=== PATIENT | female | born 1995 | race Caucasian/White ===

== ENCOUNTER 2017-07-23 12:40 | Emergency (ER) | payer SELFPAY ==
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
[2017-07-23] MEDS ORDERED: Ibuprofen TAB* 600 MG PO ONE (13:38)
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
[2017-07-23 14:41] VITALS: BP 128/84
== END 2017-07-23 14:40 | disposition home or self-care (01) ==
LOC: ED 12:40
DX: S43.402A Unspecified sprain of left shoulder joint, initial encounter (principal); V43.62XA Car passenger injured in collision with other type car in traffic accident, initial encounter; Y92.9 Unspecified place or not applicable; Y99.8 Other external cause status; Z88.0 Allergy status to penicillin
CPT/HCPCS: 99282; A9270-GY

== ENCOUNTER 2018-12-02 11:24 | Emergency (ER) | payer BC, OTHER ==
[2018-12-02 11:38] VITALS: BP 125/92
--- NOTE | 2018-12-02 12:13 | UC ---
General HPI - HPI Summary HPI Summary: 23 yo female c/o headache since yesterday am upon awakening. H/a is mostly frontal L>R. Not wol, has had h/a's in the past, but not like this since approx 2013. No recent illness / fever / chills. No rash. Reported to RN blurry vision, vision ok now. Described floaters / flashes / curtain. No cough / sob / palpitations. No GI issues although has been nauseaus. Reportst feeling depressed, but specifically denies suicidal / homicidal ideation. No fever / chills. Works hard at work, indoors (high chemical / allergen environment). Feels like she is dehydrated. Feels very stressed. Has upcoming appt with new PCP ([facility] for Dr. Dubois) this week. + fam hx thyroid d/o , would like blood work. Denies , on bcp, periods have been regular. - History of Current Complaint Chief Complaint: UCHeadache Stated Complaint: HEADACHE/BLURRED VISION Time Seen by Provider: 12/02/18 12:11 Hx Obtained From: Patient Hx Last Menstrual Period: 2 wks ago Pain Intensity: 6 - Allergy/Home Medications Allergies/Adverse Reactions: Allergies Allergy/AdvReac Type Severity Reaction Status Date / Time amoxicillin Allergy Hives Verified 12/02/18 11:38 PMH/Surg Hx/FS Hx/Imm Hx Previously Healthy: Yes - see hpi - Surgical History Surgical History: None - Family History Known Family History: Positive: None - Social History Alcohol Use: Occasionally Substance Use Type: Marijuana Smoking Status (MU): Never Smoked Tobacco - Immunization History Most Recent Influenza Vaccination: no Review of Systems All Other Systems Reviewed And Are Negative: Yes Constitutional: Positive: Other - see hpi Skin: Positive: Other - see hpi Eyes: Positive: Other - see hpi ENT: Positive: Other - see hpi Respiratory: Positive: Other - see hpi Cardiovascular: Positive: Other - see hpi Gastrointestinal: Positive: Other - see hpi Genitourinary: Positive: Other - see hpi Motor: Positive: Other - see hpi Neurovascular: Positive: Other - see hpi Musculoskeletal: Positive: Other: - see hpi Neurological: Positive: Other - see hpi Psychological: Positive: Other - see hpi Is Patient Immunocompromised?: No Physical Exam Triage Information Reviewed: Yes Appearance: Well-Appearing, Well-Nourished Vital Signs: Initial Vital Signs Temp 98.7 F 04/20/19 11:33 Pulse 87 12/02/18 11:33 Resp 18 12/02/18 11:33 BP 125/92 12/02/18 11:33 Pulse Ox 99 12/02/18 11:33 Vital Signs Reviewed: Yes Eye Exam: Normal - perrla eomi sw / cp no nystagmus. double vision at 8in. vis haider grossly ok (finger movement) fundi (nondilate) benign as visible. ENT Exam: Normal ENT: Positive: Pharynx normal Neck exam: Normal Neck: Positive: Supple, Nontender, No Lymphadenopathy Respiratory Exam: Normal Respiratory: Positive: Chest non-tender, Lungs clear, Normal breath sounds, No respiratory distress, No accessory muscle use Cardiovascular Exam: Normal Cardiovascular: Positive: RRR, No Murmur, Pulses Normal, Brisk Capillary Refill Abdominal Exam: Normal Abdomen Description: Positive: Nontender Musculoskeletal Exam: Normal Musculoskeletal: Positive: Strength Intact Neurological Exam: Normal Psychological Exam: Normal - CN 1-12 intact ( + smell alc swab) gait steady no tremor noted Skin Exam: Normal Course/Dx - Course Course Of Treatment: Reviewed coa / tx plan. CT brain offered, declines. Will drink water / hydrate at home. Will order blood work (significant fam hx thyroid issues), see "orders." F/u PCP on Tuesday as schedule. Aware to go to the ED for any problems, worse or new issues. Questions as posed answered to the best of my ability. - Diagnoses Provider Diagnosis: Headache Discharge - Sign-Out/Discharge Documenting (check all that apply): Patient Departure All imaging exams completed and their final reports reviewed: No Studies - Discharge Plan Condition: Stable Disposition: HOME Patient Education Materials: Acute Headache (ED) Forms: *Work Release Referrals: Nguyen Dubois MD [Medical Doctor] - Additional Instructions: Please follow up with your primary care physician / [facility] this week as scheduled. Go to the Emergency Department for any problems in the meantime. Blood work today. - Billing Disposition and Condition Condition: STABLE Disposition: Home
[2018-12-02 14:19] LABS: ABS Basophils 0 10^3/ul (0-0.2); ABS Eosinophils 0.1 10^3/ul (0-0.6); ABS Lymphocytes 2.7 10^3/ul (1.0-4.8); ABS Monocytes 0.5 10^3/ul (0-0.8); ABS Neutrophils 6.4 10^3/ul (1.5-7.7); ABS Nucleated RBC 0 10^3/ul; Eosinophil % 1.3 %; Hematocrit 45 % (33-41); Hemoglobin 14.8 g/dL (12.0-16.0); Lymphocyte % 28.1 %; Mean Corpuscular HGB Conc 33 g/dL (31-36); Mean Corpuscular Hemoglobin 29 pg (27-31); Mean Corpuscular Volume 87 fL (80-97); Mean Platelet Volume 9.3 fL (7.4-10.4); Nucleated Red Blood Cells % 0.1; Platelet Count 302 10^3/uL (150-450); Red Blood Count 5.16 10^6 /uL (3.70-4.87); Red Cell Distribution Width 13 % (10.5-15); White Blood Count 9.8 10^3/uL (3.5-10.8)
[2018-12-02 15:09] LABS: Albumin 4.6 g/dL (3.2-5.2); Albumin/Globulin Ratio 1.5 (1-3); BUN/Creatinine Ratio 12.7 (8-20); Calcium 9.8 mg/dL (8.6-10.3); EGFR African American 107.3 (>60); EGFR Non-African American 88.7 (>60); Magnesium 1.9 mg/dL (1.9-2.7); Potassium 4.7 mmol/L (3.5-5.0); Total Bilirubin 0.5 mg/dL (0.2-1.0); Total Protein 7.6 g/dL (6.4-8.9)
[2018-12-02 15:10] LABS: TSH (Thyroid Stimulating Horm) 1.57 mcIU/mL (0.34-5.60)
== END 2018-12-02 12:49 | disposition home or self-care (01) ==
LOC: UCEAST 11:24
DX: R51 Headache (principal); F32.9 Major depressive disorder, single episode, unspecified; Z88.0 Allergy status to penicillin
CPT/HCPCS: 36415; 80053; 83735; 84443; 85025; 99212; G0463

== ENCOUNTER 2019-05-27 14:46 | Emergency (ER) | payer BC ==
--- NOTE | 2019-05-27 15:28 | ED ---
Psychiatric Complaint - HPI Summary HPI Summary: This pt is a 24 Y/O F presenting to [facility] with a CC of depression and suicidal thoughts that has been present since March. She states that she has a plan but it is not concrete. She states that she hasnt been sleeping at night normally. She stated that she has currently stopped taking her medication and stated that it was making me feel worse. She denies any fever, chills, N/V, abdominal pain , CP, SOB, homicidal ideations and headaches. She states that she has a SHx of smoking marijuana and drinking alcohol but denies any tobacco. She states that her mother has a Hx of mental illness. - History Of Current Complaint Chief Complaint: EDMentalHealth Time Seen by Provider: 05/27/19 15:08 Hx Obtained From: Patient Hx Last Menstrual Period: 2 wks ago Onset/Duration: Gradual Onset, Lasting Weeks, Still Present Timing: Constant Severity Initially: Moderate Severity Currently: Moderate Character: Depressed Aggravating Factor(s): Medication Non-compliance Alleviating Factor(s): Nothing Associated Signs And Symptoms: Positive: Sleep Disturbance Related History: Positive For: Prior Psychiatric Issues Has Suicidal: Reports: Thoughts, With A Plan - "nothing concrete" as per patient Has Homicidal: Denies: Thoughts, With A Plan - Allergies/Home Medications Allergies/Adverse Reactions: Allergies Allergy/AdvReac Type Severity Reaction Status Date / Time amoxicillin Allergy Hives Verified 05/27/19 14:57 PMH/Surg Hx/FS Hx/Imm Hx Previously Healthy: Yes Endocrine/Hematology History: Denies: Hx Diabetes, Hx Thyroid Disease Cardiovascular History: Denies: Hx Hypertension Respiratory History: Denies: Hx Asthma, Hx Chronic Obstructive Pulmonary Disease (COPD) GI History: Denies: Hx Ulcer Psychiatric History: Reports: Hx Depression Infectious Disease History: No Infectious Disease History: Denies: Hx Clostridium Difficile, Hx Hepatitis, Hx Human Immunodeficiency Virus (HIV), Hx of Known/Suspected MRSA, Hx Shingles, Hx Tuberculosis, History Other Infectious Disease, Traveled Outside the [place] in Last 30 Days - Family History Known Family History: Positive: Cardiac Disease - States paternal diseases, unknown what they are. , Other - depression/anxiety: maternal - Social History Alcohol Use: Occasionally Hx Substance Use: Yes Substance Use Type: Reports: Marijuana Hx Tobacco Use: No Smoking Status (MU): Never Smoked Tobacco Review of Systems Negative: Fever, Chills Negative: Chest Pain Negative: Shortness Of Breath Negative: Abdominal Pain, Vomiting, Nausea Negative: Headache Psychological: Other - States Suicidal ideations Positive: Depressed, Other - NEGATIVE: homicidal ideations All Other Systems Reviewed And Are Negative: Yes Physical Exam - Summary Physical Exam Summary: VITAL SIGNS: Reviewed. GENERAL: Patient is a well-developed and overweight female who is lying comfortable in the stretcher. Patient is not in any acute respiratory distress. HEAD AND FACE: No signs of trauma. No ecchymosis, hematomas or skull depressions. No sinus tenderness. EYES: PERRLA, EOMI x 2, No injected conjunctiva, no nystagmus. EARS: Hearing grossly intact. Ear canals and tympanic membranes are within normal limits. MOUTH: Oropharynx within normal limits. NECK: Supple, trachea is midline, no adenopathy, no JVD, no carotid bruit, no c- spine tenderness, neck with full ROM CHEST: Symmetric, no tenderness at palpation LUNGS: Clear to auscultation bilaterally. No wheezing or crackles. CVS: Regular rate and rhythm, S1 and S2 present, no murmurs or gallops appreciated. ABDOMEN: Soft, non-tender. No signs of distention. No rebound no guarding, and no masses palpated. Bowel sounds are normal. EXTREMITIES: FROM in all major joints, no edema, no cyanosis or clubbing. NEURO: Alert and oriented x 3. No acute neurological deficits. Speech is normal and follows commands. SKIN: Dry and warm Triage Information Reviewed: Yes Vital Signs On Initial Exam: Initial Vitals Temp Pulse Resp BP Pulse Ox 98.5 F 97 16 131/95 98 05/27/19 14:51 05/27/19 14:51 05/27/19 14:51 05/27/19 14:51 05/27/19 14:51 Vital Signs Reviewed: Yes Procedures - Sedation Patient Received Moderate/Deep Sedation with Procedure: No Diagnostics - Vital Signs Vital Signs Temp Pulse Resp BP Pulse Ox 05/27/19 14:51 98.5 F 97 16 131/95 98 - Laboratory Result Diagrams: 05/27/19 16:00 05/27/19 16:00 Lab Statement: Any lab studies that have been ordered have been reviewed, and results considered in the medical decision making process. Course/Dx - Course Assessment/Plan: This patient is a 24-year-old female who presents to the emergency room with a chief complaint of having suicidal ideation without a plan. Blood work w/o a significant abnormality. She is medically cleared. She is awaiting a [facility]. Patient was assess by Dr. Ortiz and recommends to discharge home with mother. Patient is hemodynamically stable and A+O x 3 - Differential Dx/Clinical Impression Differential Diagnosis/HQI/PQRI: Positive: Anxiety, Depression, Suicidal Ideation Provider Diagnosis: Depression - Physician Notifications Discussed Care Of Patient With: Jose E Ortiz Time Discussed With Above Provider: 17:59 Instructed by Provider To: Other - Dr. Ortiz, psychiatrist, will be discharging the pt with a Dx of unspecified depression and instructions to follow up with [facility]. Discharge ED - Sign-Out/Discharge Documenting (check all that apply): Patient Departure - discharge - Discharge Plan Condition: Stable Disposition: HOME Patient Education Materials: Depression (ED), Anxiety (ED), Suicide Prevention (ED) Forms: *Work Release Referrals: [facility] [Outside] (please follow up as soon as possible; walk in hours are available ) Kasey Segovia MD [Primary Care Provider] - - Billing Disposition and Condition Condition: STABLE Disposition: Home - Attestation Statements Document Initiated by Scribe: Yes Documenting Scribe: Abdelrahman Gonzales Provider For Whom Kan is Documenting (Include Credential): Olegario Mejia MD Scribe Attestation: Abdelrahman Arroyo, scribed for Olegario Mejia MD on 05/27/19 at 1839. Scribe Documentation Reviewed: Yes Provider Attestation: The documentation as recorded by the Abdelrahman gray accurately reflects the service I personally performed and the decisions made by me, Olegario Mejia MD Status of Scribe Document: Viewed
[2019-05-27 16:00] LABS: Urine Benzodiazepine Screen None Detected (None Detect); Urine Opiates Screen None Detected (None Detect)
[2019-05-27 16:17] LABS: ABS Eosinophils 0.1 10^3/ul (0-0.6); ABS Lymphocytes 2.4 10^3/ul (1.0-4.8); ABS Monocytes 0.6 10^3/ul (0-0.8); ABS Neutrophils 8.3 10^3/ul (1.5-7.7); Eosinophil % 1.2 %; Hematocrit 42 % (35-47); Hemoglobin 14.1 g/dL (12.0-16.0); Mean Corpuscular HGB Conc 34 g/dL (31-36); Mean Corpuscular Hemoglobin 29 pg (27-31); Mean Corpuscular Volume 87 fL (80-97); Mean Platelet Volume 8.6 fL (7.4-10.4); Nucleated Red Blood Cells % 0.1; Platelet Count 307 10^3/uL (150-450); Red Blood Count 4.81 10^6 /uL (3.70-4.87); Red Cell Distribution Width 14 % (10-15); White Blood Count 11.4 10^3/uL (3.5-10.8)
[2019-05-27 16:38] LABS: ALT 16 U/L (7-52); AST 16 U/L (13-39); Acetaminophen < 15 mcg/mL; Albumin 4.3 g/dL (3.2-5.2); Albumin/Globulin Ratio 1.4 (1-3); Alcohol < 10 mg/dL (<10); Alkaline Phosphatase 55 U/L (34-104); Anion Gap 9 mmol/L (2-11); BUN/Creatinine Ratio 14.5 (8-20); Blood Urea Nitrogen 10 mg/dL (6-24); CO2 Carbon Dioxide 23 mmol/L (22-32); Calcium 9.5 mg/dL (8.6-10.3); Chloride 106 mmol/L (101-111); EGFR African American 124.4 (>60); EGFR Non-African American 102.8 (>60); Glucose 80 mg/dL (70-100); Potassium 3.9 mmol/L (3.5-5.0); Salicylate < 2.50 mg/dL (<30); Sodium 138 mmol/L (135-145); Total Protein 7.3 g/dL (6.4-8.9)
[2019-05-27 16:55] LABS: TSH (Thyroid Stimulating Horm) 1.87 mcIU/mL (0.34-5.60)
[2019-05-27 17:14] LABS: Urine Appearance Clear; Urine Blood Negative (Negative); Urine Color Yellow; Urine Ketones Negative (Negative); Urine Nitrite Negative (Negative); Urine Protein 1+(30 mg/dL) (Negative); Urine Urobilinogen Negative (Negative)
[2019-05-27 17:15] LABS: Urine Bilirubin Negative (Negative); Urine Glucose Negative (Negative)
[2019-05-27 17:22] LABS: Urine Bacteria Absent (Absent); Urine Red Blood Cell Trace(0-2/hpf) (Absent); Urine Squamous Epithelial Cell Present (Absent); Urine White Blood Cell Trace(0-5/hpf) (Absent)
[2019-05-27 18:31] VITALS: BP 129/60
== END 2019-05-27 18:15 | disposition home or self-care (01) ==
LOC: ED 14:46
DX: F32.9 Major depressive disorder, single episode, unspecified (principal); R45.851 Suicidal ideations; Z88.0 Allergy status to penicillin
CPT/HCPCS: 36415; 80053; 80307; 80320; 80329; 81003; 81015; 84443; 85025; 87086; 99285; G0480